=== PATIENT | female | born 1995 ===

== ENCOUNTER 2017-07-01 18:27 | Emergency (ER) | payer OTHER ==
[2017-07-01 21:54] VITALS: BMI 27.4
--- NOTE | 2017-07-01 22:34 | US ---
EXAM: US After First Trimester, Transabdominal CLINICAL HISTORY: 21 years old, female; Signs and symptoms; Lmp or gestational age (in weeks): Unknown; Antepartum complications; Hemorrhage; ; Additional info: Vaginal bleed TECHNIQUE: Real-time transabdominal obstetrical ultrasound of the maternal pelvis and a second or third trimester with image documentation. COMPARISON: No relevant prior studies available. FINDINGS: Fetus: Single live intrauterine gestation. Heart rate: heart rate of 159 beats per minute. Presentation: Cephalic. Placenta: Anterior fundal. No placenta previa or abruption. Amniotic fluid: Normal. Anatomy: No gross anomaly is appreciated. BIOMETRICS Gestational age by US: Estimated gestational age of 21 weeks 3 days by measurements. EFW: Estimated weight of 440 g. BPD: 5.0 cm, correlating with 21 weeks 2 days. HC: 18.1 cm, correlating with 20 weeks 4 days. AC: 16.1 cm, correlating with 21 weeks 1 day. FL: 3.9 cm, correlating with 22 weeks 4 days. MATERNAL: Uterus: Unremarkable. No myometrial mass. Cervix: No cervical dilatation or effacement. Adnexa: Ovaries not visualized. No adnexal masses. Free fluid: No significant free fluid. IMPRESSION: 1. Single live intrauterine gestation. EXAM: US , Transvaginal CLINICAL HISTORY: 21 years old, female; Signs and symptoms; Lmp or gestational age (in weeks): Unknown; Antepartum complications; Hemorrhage; ; Additional info: Vaginal bleed TECHNIQUE: Real-time endovaginal obstetrical ultrasound of the maternal pelvis and second or third trimester with image documentation. Endovaginal imaging was used for better evaluation of the cervix. COMPARISON: No relevant prior studies available. FINDINGS: Fetus: Single live intrauterine gestation. Heart rate: heart rate of 159 beats per minute. Presentation: Cephalic. Placenta: Anterior fundal. No placenta previa or abruption. Amniotic fluid: Normal. Anatomy: No gross anomaly is appreciated. BIOMETRICS Gestational age by US: Estimated gestational age of 21 weeks 3 days by measurements. EFW: Estimated weight of 440 g. BPD: 5.0 cm, correlating with 21 weeks 2 days. HC: 18.1 cm, correlating with 20 weeks 4 days. AC: 16.1 cm, correlating with 21 weeks 1 day. FL: 3.9 cm, correlating with 22 weeks 4 days. MATERNAL: Uterus: Unremarkable. No myometrial mass. Cervix: No cervical dilatation or effacement. Adnexa: Ovaries not visualized. No adnexal masses. Free fluid: No significant free fluid.
== END 2017-07-01 18:30 | disposition home or self-care (01) ==
LOC: H.EROB2 18:27 → H.EROB 07-02 01:45
DX: O47.02 False labor before 37 completed weeks of gestation, second trimester (principal); Z3A.22 22 weeks gestation of pregnancy

== ENCOUNTER 2017-11-11 09:48 | Inpatient (IN) | payer MEDICAID, SELFPAY ==
[2017-11-11 09:58] VITALS: BMI 33.9
[2017-11-11] MEDS ORDERED: Oxytocin 30 UNITS in Sodium Chloride 0.9% 500 ML IV ONE (10:43)
[2017-11-11] MEDS ORDERED: Lactated Ringer's 1,000 ML IV SCH ×2 (10:45→11:00)
[2017-11-11 11:09] LABS: BASO # 0.2 K/uL (0.0-0.2); EOS # 0.1 K/uL (0.0-0.7); EOS % 0.4 % (0.0-4.0); HEMOGLOBIN 11.3 g/dL (12.0-16.0); LYMPH # 2.9 K/uL (1.0-4.3); LYMPH % 17.3 % (20.0-40.0); MEAN CELL VOLUME 79.5 fl (81.0-99.0); MEAN CORPUSCULAR HEMOGLOBIN 25.5 pg (27.0-31.0); MEAN CORPUSCULAR HGB CONC 32.1 g/dL (33.0-37.0); MONO # 0.8 K/uL (0.0-0.8); MONO % 4.8 % (0.0-10.0); NEUT # 12.7 K/uL (1.8-7.0); NEUT % 76.5 % (50.0-75.0); RBC 4.44 Mil/uL (3.80-5.20); WHITE BLOOD COUNT 16.6 K/uL (4.8-10.8)
--- NOTE | 2017-11-11 11:42 | OBADHP ---
Datetime: 11/11/2017 11:31 Admit Comment, IP Provider: 22 yo at 40+3 wks in labor Pt admitted to L_D FHT reassuring, GBS negative H_P dictated, "[id number]" (ES) Pelvic Type - PN: Adequate Extremities - PN: Normal Abdomen - PN: Normal Back - PN: Normal Lungs - PN: Normal Heart - PN: Normal General - PN: Normal FHR - Baseline A Provider: 130's Membranes, Provider: Intact Contraction Comments Provider: irritability Vital Signs Provider: Reviewed; Within Normal Limits IP Chief Complaint: Uterine contractions NICHD Variability Prov Fetus A: Moderate 6-25bpm NICHD Accel Fetus A IP Provider: 15X15 FHR Category Provider Fetus A: Category II NICHD Decel Fetus A IP Provider: Variable Dilatation, Provider: 4 Effacement, Provider: 100 Station, Provider: -1 Genitourinary Exam: Normal EGA AdmitDate IP: 40.3 IP Adm Impression: Term, intrauterine IP Admit Plan: Initiate labor protocol Datetime: 07/01/2017 19:30 Breast - PN: Normal Thyroid - PN: Not Done Neurologic - PN: Normal HEENT - PN: Normal Gestation - Est Wks by US: 21.3 DTRs - PN: Not Done
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
--- NOTE | 2017-11-11 15:27 | OBPN ---
Datetime: 11/11/2017 15:23 IP Progress Impression: Normal progression of labor IP Procedures: Artificial ROM; Sterile Vag Exam IP Progress Plan: Continue present management Membranes, Provider: Ruptured Amniotic Fluid Color, Provider: Meconium, Light Contraction Comments Provider: 2-3 FHR - Baseline A Provider: 140's IP Progress Note Comment: 22 yo at 40+3 wks in labor, s/p AROM thin meconium FHT reassuring, GBS negative NICHD Accel Fetus A IP Provider: 15X15 FHR Category Provider Fetus A: Category I NICHD Variability Prov Fetus A: Moderate 6-25bpm Dilatation, Provider: 7 Effacement, Provider: 100 Station, Provider: -1 NICHD Decel Fetus A IP Provider: None Datetime: 11/11/2017 11:31 Vital Signs Provider: Reviewed; Within Normal Limits Datetime: 07/01/2017 19:30 Gestation - Est Wks by US: 21.3
[2017-11-11] MEDS ORDERED: Oxycodone/Acetaminophen 5/325 mg Tab PO PRN ×2 (16:32→19:09)
[2017-11-11] MEDS ORDERED: Benzocaine/Menthol SPRAY TOP PRN ×2 (16:32→19:09)
--- NOTE | 2017-11-11 16:47 | OBDS ---
DELIVERY PERSONNEL Nurse Office Machine Installer Certified: sophie Delivery Doctor: Perry Landaverde MD Scrub Nurse: sophie Hardener Helper: Alex Prajapati/Alex Melton Anesthesiologist: sophie Assessment Rn: sophie Resident: sophie MATERNAL INFORMATION Delivery Anesthesia: Local Medications in Delivery: Pitocin 30 units in 500 cc LR Estimated Blood Loss (ml): 150 Placenta Cultured: No Maternal Complications: None RN Comments: tolerated well by pt.Delivery attended by .No acute distress noted. Provider Comments: Pt progressed to complete and pushed to deliver a viable female through cl ear fluid at 16:00. Apgars 9 and 9. Wt 7#10.8, 3480gms. Infant placed on mother's abdomen. Cord wa s clamped. FOB cut the cord. Cord blood was collected. Placenta delivered spontaneously intact w/ a 3vc at 16:10. Perineum and vagina were infused w/ 1% lidocaine. Second degree tear repaired w/ 2- 0 rapide and 3-0v. Right periurethral abrasion noted to be hemostasic. Rectum intact. EBL: 150mL LABOR SUMMARY EDC: 10/31/2017 00:00 No. Babies in Womb: 1 Attempted: No Labor Anesthesia: None LABOR INFORMATION Reason for Induction: Not Applicable Onset of Labor: 11/11/2017 03:00 Complete Dilatation: 11/11/2017 15:55 Oxytocin: N/A Group B Beta Strep: Negative Antibiotics # of Doses: na Antibiotics Time of Last Dose: na Steroids Given: None Reason Steroids Not Administered: Not Applicable MEMBRANES Membranes Rupture Method: Artificial Rupture of Membranes: 11/11/2017 15:20 Length of Rupture (hrs): 0.67 Amniotic Fluid Color: Light Meconium Amniotic Fluid Amount: Scant Amniotic Fluid Odor: Normal STAGES OF LABOR Stage 1 hrs: 12 Stage 1 min: 55 Stage 2 hrs: 0 Stage 2 min: 5 Stage 3 hrs: 0 Stage 3 min: 10 Total Time in Labor hrs: 13 Total Time in Labor min: 10 VAGINAL DELIVERY Initial Vag Sponge Count: 5 Final Vag Sponge Count: 5 Initial Vag Sharps Count: 3 Final Vag Sharps Count: 3 Sponge Count Correct: Yes; Vaginal Sweep Performed Sharps Count Correct: Yes Count Comment: counted with BABY A INFORMATION Infant Delivery Date/Time: 11/11/2017 16:00 Method of Delivery: Vaginal Born in Route : No : N/A Forceps: N/A Vacuum Extraction: N/A Shoulder Dystocia : No SHOULDER DYSTOCIA BABY A Infant Delivery Date/Time: 11/11/2017 16:00 PRESENTATION/POSITION BABY A Presentation: Cephalic Breech Presentation: N/A PLACENTA INFORMATION BABY A Placenta Delivery Time : 11/11/2017 16:10 Placenta Method of Delivery: Spontaneous Placenta Status: Delivered SCORES BABY A Heart Rate 1 min: >100 bpm Resp Effort 1 min: Good Cry Reflex Irritability 1 min: Cough or Sneeze or Pulls Away Muscle Tone 1 min: Active Motion Color 1 min: Body Hilda, Extremities Blue Resuscitation Effort 1 min: Tactile Stimulation SCORE 1 MIN: 9 Heart Rate 5 min: >100 bpm Resp Effort 5 min: Good Cry Reflex Irritability 5 min: Cough or Sneeze or Pulls Away Muscle Tone 5 min: Active Motion Color 5 min: Body Hilda, Extremities Blue Resuscitation Effort 5 min: Tactile Stimulation SCORE 5 MIN: 9 INFANT INFORMATION BABY A Gestational Age at Delivery: 40.3 Gestational Status: Term Infant Outcome : Liveborn Infant Condition : Stable Infant Sex: Female IDENTIFICATION/MEDS BABY A ID Band Number: [id number] ID Band Location: Left Leg; Left Arm Vitamin K Given : Not Given Erythromycin Given: Not Given CORD INFORMATION BABY A No. Cord Vessels: 3 Nuchal Cord : N/A Nuchal Cord Other: na True Knot: na Cord Blood Taken: Yes Infant Suction: Mouth ASSESSMENT BABY A Infant Complications: None Physical Findings at Delivery: Within Normal Limits Infant Respirations: Appears Normal Soft Metals Hand Engraver/ALS Called : No Infant Care By: Alex Prajapati/Alex Oliver Transferred To: Remains with Mother
[2017-11-12 08:19] LABS: HEMOGLOBIN 9.4 g/dL (12.0-16.0); MEAN CELL VOLUME 79.8 fl (81.0-99.0); MEAN CORPUSCULAR HEMOGLOBIN 25.9 pg (27.0-31.0); MEAN CORPUSCULAR HGB CONC 32.4 g/dL (33.0-37.0); RBC 3.63 Mil/uL (3.80-5.20); RED CELL DISTRIBUTION WIDTH 15.9 % (11.5-14.5); WHITE BLOOD COUNT 16.5 K/uL (4.8-10.8)
[2017-11-12] MEDS: Multivitamin With Minerals Tab PO SCH (08:24)
[2017-11-12] MEDS ORDERED: Multivitamin With Minerals Tab PO SCH (09:00)
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
--- NOTE | 2017-11-12 13:11 | OBPPN ---
Datetime: 11/12/2017 08:31 PP Pain Prov: Within normal limits PP Nausea Prov: Denies PP Flatus Prov: No PP BM Prov: No PP Breasts Prov: Not Done PP Heart Prov: Normal PP Lungs Prov: Normal PP Abdomen/Uterus Prov: Normal PP Lochia Prov: Normal PP Vulva/Perineum Prov: Not Done PP CVA Tenderness Prov: Normal PP Extremities Prov: Normal PP C/S Incision Prov: Not Applicable PP Progress Prov: Normal PP Impression Prov: Normal progression PP Plan Prov: Continue present management PP Progress Note Prov: PPD 1 S: 22 yo s/p NVD on 11/11/2017 at 16:00. Pt. is seen and examined at bedside this AM. No overnight events. Pt reports occasional abdominal pain, but well controlled with pain meds. Pt is amb ulating without any difficulties. Breast feeding baby. Tolerating PO diet. Lochia is similar to light menses in volume. Voiding freely, no bowel movement, or passing gas per rectum. Denies fever, chills , diarrhea, nausea, vomiting, chest pain, dyspnea, and dizziness. O: VS: stable GEN: NAD Cardio: S1S2, no M/G/R Resp: clear breath sounds b/l Abdomen: BS+, NT, Uterus is firm and at the level of the umbilicus. EXT: No edema, calves nontender NEURO/PSYCHI: AAOx3, no grossly focal deficit, preserved affect and mood. Assessment/Plan: 22 yo s/p NVD on 11/11/2017 at 16:00. Pt remains afebrile, tolerating lebron n with medication, tolerating PO intake, doing well on PPD1. OOB with caution SCDs for DVT prophylaxis, pt ambulating Ibuprofen 600mg for pain. Colace 100mg PO BID/Senokot 17.2 mg qHS for constipation Encourage and ambulating F/u CBC post-delivery: pending Anticipated d/c to home, 11/13/2017. Case dw OB attending --- Stevo Regalado MD PGY-1 obh addendum: pt seen _ examined by me. agree w/ above assessment andplan will need rx for Fe on d/c home(hgb9) IP PP Procedures: None Vital Signs Provider PP: Reviewed; Within Normal Limits
--- NOTE | 2017-11-13 08:54 | OBDCSUM ---
Datetime: 11/13/2017 07:31 Discharged to, Provider: Home Follow up at, Provider: [facility] Disch Instr Activity: Normal activity; May be up to bathroom; May be up for meals; May Shower Disch Instr Diet: Regular Discharge Instructions, Provider: Routine instructions given Discharge Diagnosis, Provider: Term Delivered Follow up in weeks, Provider: 4-6 weeks Disch Activity Restrictions: No exercising; No lifting; Minimize walking; Minimize stair-climbing; N o sexual activity; Nothing in vagina - [place], tampons, douche Discharge Comment, Provider: 22 yo s/p NVD on 11/11/2017 at 16:00. Discharge instructions: Encourage PNV 1 tab PO/day Ibuprofen 600 mg 1 tab PRN if moderate pain Ambulate with caution, nothing per vagina, no heavy lifting, avoid stairs. If excessive bleeding, or fever without relief from tylenol, go to ED. F/u at [facility] in 4-6 weeks
--- NOTE | 2017-11-13 08:54 | OBPPN ---
Datetime: 11/13/2017 07:29 PP Pain Prov: Within normal limits PP Nausea Prov: Denies PP Flatus Prov: Yes PP BM Prov: No PP Breasts Prov: Not Done PP Heart Prov: Normal PP Lungs Prov: Normal PP Abdomen/Uterus Prov: Normal PP Vulva/Perineum Prov: Not Done PP CVA Tenderness Prov: Not Done PP Extremities Prov: Normal PP C/S Incision Prov: Not Applicable PP Progress Prov: Normal PP Impression Prov: Normal progression PP Plan Prov: Discharge PP Progress Note Prov: PPD 2 S: 22 yo s/p NVD on 11/11/2017 at 16:00. Pt was seen and examined at bedside this AM; no acute events overnight. Has occasional abdominal pain that is well controlled with medications. She i s ambulating without any difficulties, and is both breast and bottle feeding baby. Tolerating PO diet . Lochia is similar to light menses in volume. Voiding freely, has passed gas per rectum. Denies feve r, chills, diarrhea, nausea, vomiting, chest pain, dyspnea, and dizziness. Pt was seen by psychiatrist due to h/o self-harming behavior at age 16; pt at current mental statu s not danger to self or others, psychiatrically cleared for discharge upon medical clearance. O: VS: stable GEN: alert, no acute distress, Cardio: S1S2, RRR Resp: clear breath sounds bilaterally Abdomen: BS+, nontender, uterus firm at the level of umbilicus. EXT: No edema, calves non-tender Assessment: 22 yo s/p NVD on 11/11/2017 at 16:00. Plan: Discharge today. -[id number]. OB Hospitalist Addendum: Pt seen and examined by me. Agree w/ above. PD 2 s/p , doing well, b reast and bottle feeding. Rx's motrin and ferrous sulfate signed. Discharge home today. (ES) Vital Signs Provider PP: Reviewed
[2017-11-13] MEDS: Multivitamin With Minerals Tab PO SCH (08:59)
[2017-11-13 18:48] VITALS: BP 116/78; PULSE 89; RESP 20; TEMP 98.4; O2SAT 99
== END 2017-11-13 13:45 | disposition home or self-care (01) | DRG 373 ==
LOC: H.L&D 09:48 → H.EROB2 09:48 → H.L&D 10:35 → H.EROB2 10:35 → H.OB/GYN 18:21
PROVIDERS: ADMIT Obstetrics & Gynecology; ATTEND Obstetrics & Gynecology
PROC: 10907ZC Drainage of Amniotic Fluid, Therapeutic from Products of Conception, Via Natural or Artificial Opening (ICD-10-PCS; principal; 2017-11-11)
PROC: 10E0XZZ Delivery of Products of Conception, External Approach (ICD-10-PCS; 2017-11-11)
PROC: 4A1HXCZ Monitoring of Products of Conception, Cardiac Rate, External Approach (ICD-10-PCS; 2017-11-11)
PROC: 0KQM0ZZ Repair Perineum Muscle, Open Approach (ICD-10-PCS; 2017-11-11)
DX: O77.0 Labor and delivery complicated by meconium in amniotic fluid (principal); K59.00 Constipation, unspecified; O99.02 Anemia complicating childbirth; Z37.0 Single live birth; O70.1 Second degree perineal laceration during delivery; Z3A.40 40 weeks gestation of pregnancy; Z62.810 Personal history of physical and sexual abuse in childhood; Z82.79 Family history of other congenital malformations, deformations and chromosomal abnormalities; Z91.410 Personal history of adult physical and sexual abuse; Z87.440 Personal history of urinary (tract) infections